=== PATIENT | female | born 1960 | race Caucasian/White ===

== ENCOUNTER 2019-06-01 05:16 | Inpatient (IN) ==
--- NOTE | 2019-05-25 08:39 | EKG Report ---
Test Performed on : 05/25/2019 08:29:51 AM Test Reason : PAT Blood Pressure : / mmHG Vent. Rate : 060 BPM Atrial Rate : 060 BPM P-R Int : 156 ms QRS Dur : 088 ms QT Int : 380 ms P-R-T Axes : 054 049 063 degrees QTc Int : 380 ms Normal sinus rhythm. Possible Left atrial enlargement Borderline ECG When compared with ECG of 26-MAR-2012 15:44, Vent. rate has decreased BY 62 BPM Confirmed by Lester Godoy MD ([id number]) on 05/25/2019 12:16:25 PM
[2019-05-25 08:46] LABS: URINE SOURCE CLEAN CATCH
[2019-05-25 09:07] LABS: BASO# 0.01 X1000 (0.0-0.2); BASO% 0.3 % (0.0-0.8); BILIRUBIN URINE NEGATIVE (NEGATIVE); BLOOD URINE NEGATIVE (NEGATIVE); COLOR YELLOW; EOS# 0.03 X1000 (0.0-0.7); EOS% 0.8 % (0.0-10.0); GLUCOSE URINE NEGATIVE (NEGATIVE); HEMATOCRIT 38.6 % (37.0-47.0); HEMOGLOBIN 12.1 g/dL (12.0-16.0); KETONE URINE NEGATIVE (NEGATIVE); LEUKOCYTES URINE NEGATIVE (NEGATIVE); LYMPH# 0.87 X1000 (1.2-3.4); LYMPH% 23.7 % (20.5-51.1); MCH 28.6 PG (27-31); MCHC 31.3 g/dL (33-37); MCV 91.3 FL (81-99); MONO# 0.55 X1000 (0.11-0.59); MPV 10.3 FL (7.4-10.4); NEUT# 2.21 X1000 (1.4-6.5); NEUT% 60.2 % (42.2-75.2); NITRITE URINE NEGATIVE (NEGATIVE); PLT 188 X1000 (130-400); PROTEIN URINE TRACE mg/dL (NEGATIVE); RBC 4.23 XMIL (4.2-5.4); RDW 14.6 % (11.5-14.5); SP GRAVITY URINE 1.026; TURBIDITY URINE CLEAR (CLEAR); UR EPITHELIAL CELLS <10 /HPF (<10); URINE BACTERIA NEGATIVE /HPF; URINE RBC <10 /HPF (<10); URINE WBC <10 /HPF (<10); UROBILINOGEN URINE NORMAL (NORMAL); WBC 3.67 X1000 (4.8-10.8)
[2019-05-25 09:19] LABS: CALCIUM 9.8 mg/dL (8.8-10.2); CREATININE 1.4 mg/dL (0.5-0.9); POTASSIUM 3.5 mmol/L (3.5-5.1)
[2019-05-25 09:46] LABS: PTT 34.2 Seconds (22.3-41.8)
[2019-05-25 10:09] LABS: HEMOGLOBIN A1C 5.6 % (4.8-6.0)
[2019-05-25 10:27] LABS: INR 1.02; PROTIME 13.6 Seconds (11.0-16.0)
[2019-06-01] MEDS ORDERED: CELEBREX ONE (05:48)
[2019-06-01] MEDS ORDERED: COLACE ONE (05:48)
[2019-06-01] MEDS ORDERED: KEFZOL 1 GM/D5W 1 GM/50 ML IVPB ONE (05:48)
[2019-06-01] MEDS ORDERED: LYRICA ONE (05:48)
[2019-06-01] MEDS ORDERED: PEPCID ONE (05:48)
[2019-06-01] MEDS ORDERED: REGLAN ONE (05:48)
[2019-06-01] MEDS ORDERED: LR 1,000 ML ONE (05:48)
[2019-06-01] MEDS ORDERED: DURAMORPH ONE (06:41)
[2019-06-01] MEDS ORDERED: SODIUM CHLORIDE 0.9% ONE (06:42)
[2019-06-01] MEDS ORDERED: CYKLOKAPRON 1,000 MG/NS 1,000 MG/100 ML IVPB ONE ×2 (06:42→06:58)
[2019-06-01] MEDS ORDERED: SENSORCAINE 0.25%/EPI 1:200,000 ONE (06:42)
[2019-06-01] MEDS ORDERED: TORADOL ONE (06:42)
[2019-06-01] MEDS ORDERED: EXPAREL 1.3% ONE (06:43)
[2019-06-01] MEDS ORDERED: NEOSPORIN G.U. IRRIGANT ONE (06:43)
[2019-06-01] MEDS ORDERED: DIPRIVAN 1% ONE (06:46)
[2019-06-01] MEDS ORDERED: VERSED ONE (06:47)
[2019-06-01] MEDS ORDERED: SUFENTA ONE (06:48)
[2019-06-01] MEDS ORDERED: STERILE WATER INJ. ONE (06:53)
[2019-06-01] MEDS ORDERED: NORCURON ONE (06:53)
[2019-06-01] MEDS ORDERED: APRESOLINE ONE (07:53)
[2019-06-01 08:19] LABS: URINE SOURCE CATH
[2019-06-01 08:25] LABS: BILIRUBIN URINE NEGATIVE (NEGATIVE); BLOOD URINE NEGATIVE (NEGATIVE); COLOR YELLOW; GLUCOSE URINE NEGATIVE (NEGATIVE); KETONE URINE NEGATIVE (NEGATIVE); LEUKOCYTES URINE NEGATIVE (NEGATIVE); NITRITE URINE NEGATIVE (NEGATIVE); PH URINE 6.5; PROTEIN URINE NEGATIVE (NEGATIVE); SP GRAVITY URINE 1.016; TURBIDITY URINE CLEAR (CLEAR); UROBILINOGEN URINE NORMAL (NORMAL)
[2019-06-01 08:27] LABS: UR EPITHELIAL CELLS <10 /HPF (<10); URINE BACTERIA NEGATIVE /HPF; URINE RBC <10 /HPF (<10); URINE WBC <10 /HPF (<10)
[2019-06-01] MEDS ORDERED: PHENERGAN ONE (10:14)
[2019-06-01] MEDS ORDERED: NS 1,000 ML ONE (10:15)
[2019-06-01] MEDS: DILAUDID ONE ×4 (10:17→10:50)
--- NOTE | 2019-06-01 10:42 | Diag Imaging Result Doc PS360 ---
EXAM: SHOULDER-RIGHT 06/01/2019 HISTORY: Post op. To be done in PACU TECHNIQUE: Right shoulder one view COMMENT: There is a total shoulder arthroplasty. There is degenerative change in the acromioclavicular joint. There is no evidence of acute bony abnormality otherwise. IMPRESSION: Postsurgical changes. Electronically signed by Chivo Rosales 06/01/2019 10:40 AM
[2019-06-01] MEDS ORDERED: AMBIEN PO PRN (11:15)
[2019-06-01] MEDS ORDERED: NS 1,000 ML IV SCH (11:15)
[2019-06-01] MEDS ORDERED: ZOFRAN PO PRN (11:15)
[2019-06-01] MEDS ORDERED: MORPHINE IV PRN ×3 (11:15)
[2019-06-01] MEDS ORDERED: ZOFRAN IV PRN (11:15)
[2019-06-01] MEDS ORDERED: MILK OF MAGNESIA PO PRN (11:15)
[2019-06-01] MEDS: ULTRAM PO SCH ×2 (12:35→20:57)
[2019-06-01] MEDS: OXY IR PO PRN ×3 (16:00→21:02)
[2019-06-01] MEDS: KEFZOL 1 GM/D5W 1 GM/50 ML IVPB IV SCH ×2 (16:00→21:01)
[2019-06-01] MEDS ORDERED: LIPITOR PO SCH (21:00)
[2019-06-01] MEDS: CELEBREX PO SCH (21:02)
[2019-06-01] MEDS: PERIDEX MT SCH (21:03)
[2019-06-01] MEDS: COLACE PO SCH (21:03)
[2019-06-01] MEDS: LYRICA PO SCH (21:03)
[2019-06-02] MEDS: OXY IR PO PRN ×4 (00:29→11:00)
[2019-06-02] MEDS: ULTRAM PO SCH ×2 (02:30→06:07)
[2019-06-02] MEDS ORDERED: SYNTHROID PO SCH (07:00)
[2019-06-02 07:18] LABS: HEMATOCRIT 27.8 % (37.0-47.0); HEMOGLOBIN 8.7 g/dL (12.0-16.0)
[2019-06-02] MEDS ORDERED: VENTOLIN HFA INH SCH (07:30)
--- NOTE | 2019-06-02 07:33 | OPERATIVE NOTE ---
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 PROCEDURE: 1. Right reverse shoulder arthroplasty. 2. Right open biceps tenodesis. 3. [*] 22 modifier for this case as patient has posttraumatic osteoarthritis with heterotopic ossification and a large piece of bone in her posterior rotator cuff that required significant tedious dissection and time to carefully remove away from the axillary nerve in order to proceed with the procedure. This added about 30 minutes to the case. SURGEON: Ronald Delong MD. ELEMENTARY ESL TEACHER: 1. JENA Calabrese, whose assistance was needed for retraction and placement of implants. 2. Edmund Conrad RN. ANESTHESIA: General endotracheal anesthesia. COMPLICATIONS: None. SPECIMENS: None. DRAINS: A Hemovac drain was placed into the right shoulder. BLOOD LOSS: 150 mL. IMPLANTS: Exactech Equinoxe reverse shoulder arthroplasty system with an 11 mm press-fit stem, a + 0 humeral adapter tray with a 36 mm +0 humeral liner and a small reverse glenoid base plate with a 36 mm small reverse Glenosphere. INDICATIONS FOR PROCEDURE: Ms Mccrary has been followed in clinic for complaints of right shoulder pain. She previously sustained a proximal humerus fracture a couple of years ago and has gone on to develop significant posttraumatic arthritis as well as heterotopic ossification around the fracture site. She had tried and failed conservative treatment modalities for this including oral anti-inflammatories, intra-articular injections, and physical therapy. She states the pain progressed to the point where it interfered with activities of daily living and wished to proceed with total joint replacement. Risks, benefits, alternative therapies were discussed with the patient regarding surgery. Risks of surgery include but are not limited to risks of bleeding, infection, damage to nerves and vessels around the area, continued pain following surgery, dislocation, need for revision surgery. I did discuss with her that given the fact she is relatively young, she may end up needing a revision surgery at some point in the future. All questions were answered. Informed consent was obtained. PROCEDURE IN DETAIL: Ms. Mccrary was identified by wristband and greeted in the preoperative holding area on 06/01/2019. Her right upper extremity, which was the operative site, was marked with indelible ink per [facility] protocol. Following this, the patient was transferred back to the operating room for surgery. Upon entering the OR, she was transferred in supine position on the Skytron table. All bony prominences were well padded. General endotracheal anesthesia was then induced. At this time, she was placed into a modified beach chair position. Again, all bony prominences were well padded. Her head and body were secured on the table. The patient was examined preoperatively and found to have very minimal motion of the shoulder. She lacked about 10 degrees of external rotation from neutral. She had about 80 degrees of forward flexion and about 70 degrees of abduction. At this time, the right upper extremity was prepped and draped in a routine sterile fashion. Formal time-out was performed confirming the correct patient, procedure, operative site, operative side, administration of preoperative antibiotics. Everyone was in agreement. Patient received 2 g Ancef prior to incision. A 10 blade knife was used to make a standard 12 cm incision for deltopectoral approach to the shoulder starting at the coracoid process and continuing toward the lateral aspect of the elbow. Knife was used to dissect through skin. Bovie cautery was then used to dissect through subcutaneous fat down to the deltoid fascia. Once this was done, we then identified the cephalic vein and the fat stripe in the interval between the deltoid and pectoralis. We then developed the deltopectoral interval. The cephalic vein was taken laterally. We protected the vein throughout the procedure. At this time, Bovie was then used to incise the clavipectoral fascia and Trujillo retractor was placed under the conjoined tendon. We then used a finger to do a subdeltoid release and a Verde elevator to do a subacromial release. Once this was done, a Singletary deltoid retractor was placed laterally. We then had good visualization of the subscapularis and anterior aspect of the shoulder. Two #1 Vicryl sutures were placed to tie off the 3 sisters of the anterior aspect of the subscapularis. At this time, a Bovie was used to take down the superior half of the pectoralis major tendon. We then incised the bicipital sheath, and biceps tendon was identified. We did a suprapectoral biceps tenodesis using #1 Vicryl suture. At this time, the biceps was then traced proximally out of the groove up to its anchor on the superior labrum. Bovie cautery was then used to start our subscapularis tenotomy at the articular margin. We then completed our subscapularis tenotomy and then tagged the subscapularis with 2 #1 Vicryl sutures. Once this was done, curved Lopes scissors were used to release the anterior capsule from the subscapularis. Subscapularis was then tucked away in the subscapularis fossa. At this time, we then used Bovie to stephanie the anatomic margins of the humeral head. A rongeur was used to remove osteophytes. We then took a sagittal saw to make our humeral head cut. Following this, the humerus was then retracted posterior. A Krishna retractor was placed along the posterior glenoid. We then proceeded with our glenoid exposure. The patient was found to have a significant amount of heterotopic ossification along the posterior capsule and posterior rotator cuff musculature. We addressed this later in the case. The biceps tendon was then carefully removed using Bovie cautery, taking the labrum off, working anteriorly as well as down inferiorly, making sure to stay on the bony glenoid. Axillary nerve was identified and protected. Once we were done with our anteroinferior release, Batman retractor was placed and we continued our release inferiorly as well as around the posterior glenoid. Once this was done, we then turned our attention to excision of heterotopic ossification. Metzenbaum scissors were used to carefully dissect the capsule around the heterotopic ossification. She had a large piece of bone that wrapped around the glenoid and connected posteriorly onto the humerus. Once we carefully dissected this out with Bovie as well as Metzenbaum scissors, we then removed this piece of bone. The axillary nerve was identified and protected throughout this part of the procedure. Again, this took an additional 30 minutes. Once this bone was removed, we then turned our attention to preparation of the glenoid. A small glenoid base plate template was placed and a central K-wire was then drilled bicortically down the vault. Once this was done, a small reamer was then used followed by the standard size reamer to ream through subchondral bone. Following this, our central peg was then drilled. At this time, we then opened a small glenoid base plate and impacted it into position. We were satisfied with the placement and rotation. We then proceeded with placing our screws, placing 1 superior screw and 3 inferior screws. We had excellent fixation with the screws. Locking caps were placed and Glenosphere was then placed in routine fashion. At this time, we turned our attention to preparation of the humerus. Our reamers were used to enter the canal. We reamed up to a size 11. We then broached up to a size 11, which had excellent fit. At this time, we then placed a +0 trial plate as well as a +0 liner and reduced the shoulder. The shoulder was found to have good tension on the conjoined tendon as well as deltoid. She had good motion with internal and external rotation with the arm by her side as well as at 90 degrees of abduction. She had no signs of impingement. She had good forward flexion as well as abduction. We were satisfied with this construct. The shoulder was then dislocated and our size 11 press-fit humeral stem with a +0 humeral tray and a +0, 36 mm liner were opened and assembled on the back table. It was then impacted in position in about 25 degrees of retroversion. Once the final implants were placed, we again reduced the shoulder and took it through range of motion. It was found to be stable in all planes with good motion. At this time, our 0.325% solution of Betadine was poured into the wound and allowed to sit for 3 minutes. Once this was done, we then copiously irrigated the shoulder. The subscapularis was inspected and found to be too tight for repair, likely given the fact that she has been so contracted and has had hardly any external rotation for the last 2 years. We thus cut the excess subscapularis tendon and did not repair this. Our deep and superficial Exparel cocktail injections were then placed around the rotator cuff, capsule, deltoid and pectoralis as well as conjoined tendon. We then injected our superficial cocktail around the skin. Once this was done, the wound was copiously irrigated. We then placed a Hemovac drain in the wound. Next, #1 Vicryl suture was used to repair our pectoralis tendon. We then used 0 Vicryl suture to close our deltopectoral interval followed by 2-0 Vicryl suture for subcutaneous tissue closure and 3-0 Monocryl for skin closure. The wound was then dressed with Dermabond, 4x4s, and a Telfa island dressing. The patient was then placed into an abduction sling, extubated and transferred to her hospital stretcher in stable condition. There were no acute complications during the procedure. All sponge and sharp counts were correct at the conclusion of the procedure.
[2019-06-02 07:36] LABS: CALCIUM 7.3 mg/dL (8.8-10.2); POTASSIUM 3.8 mmol/L (3.5-5.1)
[2019-06-02] MEDS: LYRICA PO SCH (08:06)
[2019-06-02] MEDS: COLACE PO SCH (08:06)
[2019-06-02] MEDS: PERIDEX MT SCH (08:07)
[2019-06-02] MEDS: CELEBREX PO SCH (08:07)
[2019-06-02] MEDS ORDERED: ZOLOFT PO SCH (09:00)
[2019-06-02] MEDS ORDERED: PEPCID PO SCH (09:00)
[2019-06-02] MEDS ORDERED: CARDIZEM CD PO SCH (09:00)
[2019-06-02] MEDS ORDERED: ASPIRIN PO SCH (09:00)
[2019-06-02 14:02] VITALS: BP 125/69
--- NOTE | 2019-06-02 18:40 | ORTHOPAEDICS PROGRESS NOTE ---
DATE: 06/02/2019 SUBJECTIVE: No acute events overnight. The patient's pain is fairly controlled. She is tolerating diet. She has not had any nausea or vomiting. OBJECTIVE: Afebrile. Vital signs are stable. Hematocrit is 28.Extremities: Examination of right upper extremity shows surgical dressing to be clean, dry, intact with no drainage. Drain is in place with minimal output and good seal. Motor is intact to AIN and PIN, ulnar, axillary nerve distribution. Sensation intact to light touch to median, radial, ulnar, axillary nerves. Radial pulse palpable and equal bilaterally. ASSESSMENT: A 60-year-old female status post right reverse shoulder arthroplasty. PLAN: 1. Discontinue Arellano catheter and drain. 2. Ice right upper extremity as needed for pain. 3. Physical therapy to work on home exercise program and doffing and donning sling. 4. Aspirin 325 mg daily for deep vein thrombosis prophylaxis. 5. Disposition: Plan to discharge home later on this morning after physical therapy works with her. She will follow up with me in clinic in 2 weeks.
--- NOTE | 2019-06-03 07:44 | DISCHARGE SUMMARY ---
ADMISSION DATE: 06/01/2019 DISCHARGE DATE: 06/02/2019 ADMISSION DIAGNOSIS: Right shoulder posttraumatic osteoarthritis. DISCHARGE DIAGNOSIS: Right shoulder posttraumatic osteoarthritis. PROCEDURE: Right reverse shoulder arthroplasty. CONSULTATIONS: None. COMPLICATIONS: None. BRIEF HOSPITAL COURSE: Ms. Mccrary is a 58-year-old lady who previously sustained a proximal humerus fracture and gone on to develop posttraumatic arthritis. She had a rotator cuff tear as well. Given these findings, a decision was made to proceed with right reverse shoulder arthroplasty. Risks, benefits, and alternative therapies were discussed with patient regarding surgery. Risks of surgery include but are not limited to risks of bleeding, infection, damage to nerves and vessels around the area, continued pain following surgery, dislocation, and need for revision surgery. Also, the risks of anesthesia including blood clot, stroke, heart attack, even . Patient understands these risks. All questions were answered. Informed consent was obtained. PROCEDURE IN DETAIL: The patient presented to the hospital on 06/01/2019 and had undergone the above procedure. There were no acute complications during surgery. Following surgery, she was transferred up to the floor for recovery. The patient did well overnight after surgery. She has required minimal pain medication. She had no acute medical complications. On postop day 1, the patient was tolerating diet. Her pain was well controlled on p.o. pain medication. She had worked with physical therapy. Patient was thus discharged home on 06/02/2019. DISPOSITION: Discharged home. CONDITION: Stable. ACTIVITY: Nonweightbearing right upper extremity. Abduction sling to be worn at all times other than showering, and when working on elbow, wrist, and hand range of motion. DISCHARGE MEDICATIONS: See medication reconciliation in chart. DISCHARGE INSTRUCTIONS: 1. Patient is to keep the wound clean, dry, and intact x2 days. Following this, she can remove her dressing and wash the incision with soap and water. No soaking in water or bath. 2. Aspirin 325 mg daily for DVT prophylaxis. 3. The patient is to work on her home exercise program for elbow, wrist, and hand range of motion exercises. 4. The patient will follow up with me in clinic in 2 weeks at her scheduled appointment. 5. She should call the physician office or return to the ER with any acute onset of chest pain, shortness of breath, fever greater than 101.5, or drainage from surgical incision.
== END 2019-06-02 11:49 | disposition home health service (06) | DRG 483 ==
LOC: SURHOLD 05:16 → 4N 07:51
PROVIDERS: ADMIT Orthopaedic Surgery Sports Medicine; ATTEND Orthopaedic Surgery Sports Medicine